=== PATIENT | male | born 1980 | race Caucasian/White ===

== ENCOUNTER 2021-06-26 05:45 | Emergency (ER) | payer OTHER ==
[2021-06-26 06:00] VITALS: BP 145/92; PULSE 78; TEMP 98.1; BMI 29.7
[2021-06-26] MEDS ORDERED: ASPIRIN 81 MG CHEWABLE TABLETS PO ONE (07:24)
[2021-06-26 08:42] LABS: BASO % 0.6 % (0-2.0); EOS % 1.5 % (0-4.5); HEMOGLOBIN 16.2 GM/dL (11.7-16.9); LYMPH % 27.2 % (8-40); MCH 29.7 pg (25.7-33.7); MCHC 34.4 g/dl (32.0-35.9); MEAN CELL VOLUME 86.3 fl (80-96); MEAN PLT VOLUME 7.4 fl (7.5-11.1); MONO % 5.8 % (3.8-10.2); NEUT % 64.9 % (42.8-82.8); PLATELET COUNT 251 10^3/uL (134-434); RBC 5.44 M/mm3 (4.00-5.60); RDW 13.4 % (11.9-15.9); WHITE BLOOD COUNT 6.3 K/mm3 (4.0-10.0)
[2021-06-26 08:50] LABS: INR 1.01 (0.83-1.09); PROTHROMBIN TIME (PATIENT) 11.3 SEC (9.7-13.0)
[2021-06-26] MEDS ORDERED: ASPIRIN 81 MG CHEWABLE TABLETS ONE (08:51)
[2021-06-26 08:53] LABS: ACTIVATED PTT 34.5 SECONDS (25.2-36.5)
[2021-06-26 09:11] LABS: CHLORIDE 104 mmol/L (98-107); SODIUM 140 mmol/L (136-145)
[2021-06-26 09:13] LABS: CALCIUM 8.9 mg/dL (8.5-10.1)
[2021-06-26 09:14] LABS: ALBUMIN 4.2 g/dl (3.4-5.0); ANION GAP 6 MMOL/L (8-16); BLOOD UREA NITROGEN 10.8 mg/dL (7-18); CO2 30 mmol/L (21-32); GLUCOSE,RANDOM 108 mg/dL (74-106); MAGNESIUM 2.6 mg/dL (1.8-2.4)
[2021-06-26 09:17] LABS: CREATININE 0.8 mg/dL (0.55-1.3); SGOT/AST 26 U/L (15-37); SGPT/ALT 47 U/L (13-61)
[2021-06-26 09:19] LABS: BILIRUBIN,TOTAL 0.8 mg/dL (0.2-1); TOT PROT 7.8 g/dl (6.4-8.2)
[2021-06-26 09:20] LABS: ALK PHOS 132 U/L (45-117)
== END 2021-06-26 11:24 | disposition home or self-care (01) ==
LOC: JER 05:45
DX: R07.9 Chest pain, unspecified (principal)
CPT/HCPCS: 36415; 71046-TC-FY; 80053; 83735; 84484; 85025; 85610; 85730; 93005; 93010; 99285-25

== ENCOUNTER 2022-11-27 04:23 | Day surgery (SDC) | payer OTHER ==
[2022-11-25 15:36] VITALS: BMI 36.5
[2022-11-27 13:25] VITALS: TEMP 98
[2022-11-27 14:21] VITALS: BP 113/60; PULSE 74; RESP 13
== END 2022-11-27 14:35 | disposition home or self-care (01) ==
LOC: JASU-ENDO 04:23
PROVIDERS: ATTEND Internal Medicine Gastroenterology
PROC: 0DB68ZX Excision of Stomach, Via Natural or Artificial Opening Endoscopic, Diagnostic (ICD-10-PCS; 2022-11-27)
PROC: 0DJD8ZZ Inspection of Lower Intestinal Tract, Via Natural or Artificial Opening Endoscopic (ICD-10-PCS; principal; 2022-11-27 12:30)
DX: K31.A22 Gastric intestinal metaplasia with high grade dysplasia (principal); K57.30 Diverticulosis of large intestine without perforation or abscess without bleeding; R19.09 Other intra-abdominal and pelvic swelling, mass and lump
CPT/HCPCS: 88305-TC; 88342-TC

== ENCOUNTER 2022-12-02 11:36 | Day surgery (SDC) | payer OTHER ==
[~2022-12-02 11:36] MED LIST: IRON SUCROSE INJECTION 300 MG in SODIUM CHLORIDE 250 ML IVPB ONE
[2022-12-02 17:21] VITALS: BP 122/80; PULSE 74; RESP 18; TEMP 98
== END 2022-12-02 14:10 | disposition home or self-care (01) ==
LOC: JONCNONCHE 11:36
PROVIDERS: ATTEND Internal Medicine Hematology & Oncology
PROC: 3E033GC Introduction of Other Therapeutic Substance into Peripheral Vein, Percutaneous Approach (ICD-10-PCS; principal; 2022-12-02)
DX: D50.9 Iron deficiency anemia, unspecified (principal)
CPT/HCPCS: 96365; J1756

== ENCOUNTER 2022-12-04 04:30 | Day surgery (SDC) | payer OTHER ==
[2022-12-03 11:08] VITALS: BMI 36.5
[2022-12-04 14:20] VITALS: BP 120/71; PULSE 70; RESP 19
[2022-12-04 14:23] VITALS: TEMP 98
== END 2022-12-04 14:35 | disposition home or self-care (01) ==
LOC: JASU-ENDO 04:30
PROVIDERS: ATTEND Internal Medicine Gastroenterology
PROC: 0DB68ZX Excision of Stomach, Via Natural or Artificial Opening Endoscopic, Diagnostic (ICD-10-PCS; principal; 2022-12-04 12:00)
DX: C16.9 Malignant neoplasm of stomach, unspecified (principal); B96.81 Helicobacter pylori [H. pylori] as the cause of diseases classified elsewhere
CPT/HCPCS: 88305-TC; 88342-TC

== ENCOUNTER 2022-12-09 17:17 | Day surgery (SDC) | payer OTHER ==
[2022-12-09 18:13] VITALS: TEMP 98.3
[2022-12-09 18:55] VITALS: BP 130/77; PULSE 77; RESP 18
== END 2022-12-09 18:55 | disposition home or self-care (01) ==
LOC: JONCNONCHE 17:17 → J7W 17:17 → JONCNONCHE 18:55
PROVIDERS: ATTEND Internal Medicine Hematology & Oncology
PROC: 3E033GC Introduction of Other Therapeutic Substance into Peripheral Vein, Percutaneous Approach (ICD-10-PCS; principal; 2022-12-09)
DX: D50.9 Iron deficiency anemia, unspecified (principal)
CPT/HCPCS: 96365; J1756

== ENCOUNTER 2022-12-16 16:00 | Day surgery (SDC) | payer OTHER ==
[2022-12-16 18:18] VITALS: TEMP 98.2
[2022-12-16 18:35] VITALS: BP 121/84; PULSE 77; RESP 20
== END 2022-12-16 18:35 | disposition home or self-care (01) ==
LOC: JONCNONCHE 16:00
PROVIDERS: ATTEND Internal Medicine Hematology & Oncology
PROC: 3E033GC Introduction of Other Therapeutic Substance into Peripheral Vein, Percutaneous Approach (ICD-10-PCS; principal; 2022-12-16)
DX: D50.9 Iron deficiency anemia, unspecified (principal)
CPT/HCPCS: 96365; J1756

== ENCOUNTER 2022-12-23 11:22 | Day surgery (SDC) | payer OTHER ==
[2022-12-23 18:13] VITALS: BP 119/71; PULSE 70; RESP 20; TEMP 98.9
== END 2022-12-23 13:35 | disposition home or self-care (01) ==
LOC: JONCNONCHE 11:22 → J7W 11:23 → JONCNONCHE 13:35
PROVIDERS: ATTEND Internal Medicine Hematology & Oncology
PROC: 3E033GC Introduction of Other Therapeutic Substance into Peripheral Vein, Percutaneous Approach (ICD-10-PCS; principal; 2022-12-23)
DX: D50.9 Iron deficiency anemia, unspecified (principal)
CPT/HCPCS: 96365; J1756

== ENCOUNTER 2023-01-02 16:45 | Day surgery (SDC) | payer OTHER ==
[~2023-01-02 16:45] MED LIST changes: +HYDROCORTISONE SOD SUCCINATE 100 MG/2 ML VIAL IVPUSH PRN; +IRON SUCROSE INJECTION 300 MG in SODIUM CHLORIDE 235 ML IVPB ONE; -IRON SUCROSE INJECTION 300 MG in SODIUM CHLORIDE 250 ML IVPB ONE; +diphenhydrAMINE HCL 25 MG CAPSULE (FP) PO PRN
[2023-01-02 18:28] VITALS: RESP 18; TEMP 98.4
[2023-01-02 18:34] VITALS: BP 116/78; PULSE 73
== END 2023-01-02 18:34 | disposition home or self-care (01) ==
LOC: JONCNONCHE 16:45
PROVIDERS: ATTEND Internal Medicine Hematology & Oncology
PROC: 3E033GC Introduction of Other Therapeutic Substance into Peripheral Vein, Percutaneous Approach (ICD-10-PCS; principal; 2023-01-02)
DX: D50.9 Iron deficiency anemia, unspecified (principal)
CPT/HCPCS: 96365; J1756

== ENCOUNTER 2023-01-16 04:27 | Day surgery (SDC) | payer OTHER ==
[2023-01-15 17:46] VITALS: BMI 32.8
[2023-01-16] MEDS ORDERED: SODIUM CHLORIDE 500 ML IV ONE (10:35)
[2023-01-16] MEDS ORDERED: FENTANYL CITRATE/PF 50 MCG/ML VIAL ONE (10:40)
[2023-01-16] MEDS ORDERED: MIDAZOLAM HCL 2 MG/2 ML SINGLE DOSE VIAL ONE (10:40)
[2023-01-16] MEDS ORDERED: FENTANYL CITRATE/PF 50 MCG/ML VIAL IVPUSH ONE ×2 (11:08→11:18)
[2023-01-16] MEDS ORDERED: MIDAZOLAM HCL 2 MG/2 ML SINGLE DOSE VIAL IVPUSH ONE ×2 (11:08→11:18)
[2023-01-16 13:19] VITALS: RESP 20
[2023-01-16 14:29] VITALS: BP 131/76; PULSE 81; TEMP 98.7
== END 2023-01-16 14:10 | disposition home or self-care (01) ==
LOC: JRADIR 04:27
PROVIDERS: ATTEND Internal Medicine Hematology & Oncology
PROC: 0JH60WZ Insertion of Totally Implantable Vascular Access Device into Chest Subcutaneous Tissue and Fascia, Open Approach (ICD-10-PCS; principal; 2023-01-16)
DX: C16.9 Malignant neoplasm of stomach, unspecified (principal)
CPT/HCPCS: 36561; C1788; 77001-TC-FY

== ENCOUNTER 2023-01-19 08:28 | Day surgery (SDC) | payer OTHER ==
[2023-01-19] MEDS ORDERED: SODIUM CHLORIDE 250 ML IV ONE (09:30)
[2023-01-19] MEDS ORDERED: DEXAMETHASONE SODIUM PHOSPHATE 10 MG in SODIUM CHLORIDE 50 ML IVPB ONE (10:00)
[2023-01-19] MEDS ORDERED: PALONOSETRON HCL 0.25 MG/5 ML VIAL IVPUSH ONE (10:00)
[2023-01-19] MEDS ORDERED: FOSAPREPITANT DIMEGLUMINE 150 MG in SODIUM CHLORIDE 145 ML IVPB ONE (10:00)
[2023-01-19 10:08] LABS: POTASSIUM 3.6 mmol/L (3.5-5.1)
[2023-01-19 10:10] LABS: CALCIUM 8.8 mg/dL (8.5-10.1)
[2023-01-19 10:11] LABS: ALBUMIN 3.5 g/dl (3.4-5.0); BLOOD UREA NITROGEN 16.5 mg/dL (7-18); MAGNESIUM 2.3 mg/dL (1.8-2.4)
[2023-01-19 10:15] LABS: BILIRUBIN,TOTAL 0.3 mg/dL (0.2-1); CREATININE 0.7 mg/dL (0.55-1.3)
[2023-01-19 10:16] LABS: TOT PROT 6.4 g/dl (6.4-8.2)
[2023-01-19] MEDS ORDERED: SODIUM CHLORIDE IV ONE (10:30)
[2023-01-19] MEDS ORDERED: DOCETAXEL IV ONE (10:30)
[2023-01-19] MEDS ORDERED: INSULIN (NOVOLOG) ASPART 100 UNITS/ML 10ML VIAL SQ ONE (10:32)
[2023-01-19] MEDS ORDERED: INSULIN (NOVOLOG) ASPART 100 UNITS/ML 10ML VIAL ONE (10:39)
[2023-01-19] MEDS ORDERED: WATER IVPB ONE (11:30)
[2023-01-19] MEDS ORDERED: LEUCOVORIN CALCIUM IVPB ONE (11:30)
[2023-01-19] MEDS ORDERED: DEXTROSE 5% IVPB ONE (11:30)
[2023-01-19] MEDS ORDERED: FLUOROURACIL CP ONE (13:30)
[2023-01-19] MEDS ORDERED: SODIUM CHLORIDE CP ONE (13:30)
[2023-01-19 15:35] VITALS: BP 129/73; PULSE 88; RESP 18; TEMP 98.6
== END 2023-01-19 16:05 | disposition home or self-care (01) ==
LOC: JONCCHEMO 08:28 → J7W 08:30 → JONCCHEMO 16:05
PROVIDERS: ATTEND Internal Medicine Hematology & Oncology
DX: Z51.11 Encounter for antineoplastic chemotherapy (principal); C16.9 Malignant neoplasm of stomach, unspecified
CPT/HCPCS: 36415; 80053; 83735; 96366; 96367; 96375; 96413; 96415; 96417; G0498; J1453; J2469; J9263

== ENCOUNTER 2023-01-21 13:54 | Day surgery (SDC) | payer OTHER ==
[~2023-01-21 13:54] MED LIST changes: +D5-NS + 20 MEQ KCL - 10 MEQ/500 ML INFUS.BAG IV ONE; -HYDROCORTISONE SOD SUCCINATE 100 MG/2 ML VIAL IVPUSH PRN; +INSULIN (NOVOLOG) ASPART 100 UNITS/ML 10ML VIAL SQ ONE; +IRON SUCROSE COMPLEX 200 MG in SODIUM CHLORIDE 100 ML IVPB ONE; -IRON SUCROSE INJECTION 300 MG in SODIUM CHLORIDE 235 ML IVPB ONE; +MAGNESIUM 1GM/D5W - 1 GM/100 ML IVPB IVPB ONE; +PANTOPRAZOLE SODIUM 40 MG VIAL IVPB ONE; +PANTOPRAZOLE SODIUM 40 MG in SODIUM CHLORIDE 100 ML IVPB ONE; -diphenhydrAMINE HCL 25 MG CAPSULE (FP) PO PRN
[2023-01-21 18:11] VITALS: BP 145/91; PULSE 80; RESP 18; TEMP 98.4
[2023-01-21] MEDS ORDERED: PORTA CATH FLUSH 10 ML IVPUSH PRN (18:11)
== END 2023-01-21 16:30 | disposition home or self-care (01) ==
LOC: JONCCHEMO 13:54 → J7W 13:55 → JONCCHEMO 16:30
PROVIDERS: ATTEND Internal Medicine Hematology & Oncology
PROC: 3E043GC Introduction of Other Therapeutic Substance into Central Vein, Percutaneous Approach (ICD-10-PCS; principal; 2023-01-21)
DX: C16.9 Malignant neoplasm of stomach, unspecified (principal); Z76.89 Persons encountering health services in other specified circumstances
CPT/HCPCS: 82962; 96365; 96367

== ENCOUNTER 2023-02-02 09:32 | Day surgery (SDC) | payer OTHER ==
[~2023-02-02 09:32] MED LIST changes: -D5-NS + 20 MEQ KCL - 10 MEQ/500 ML INFUS.BAG IV ONE; -INSULIN (NOVOLOG) ASPART 100 UNITS/ML 10ML VIAL SQ ONE; -IRON SUCROSE COMPLEX 200 MG in SODIUM CHLORIDE 100 ML IVPB ONE; +LIDOCAINE 2.5%/PRILOCAINE 2.5% 30 GRAM TUBE TP ONE; -MAGNESIUM 1GM/D5W - 1 GM/100 ML IVPB IVPB ONE; -PANTOPRAZOLE SODIUM 40 MG VIAL IVPB ONE; -PANTOPRAZOLE SODIUM 40 MG in SODIUM CHLORIDE 100 ML IVPB ONE
[2023-02-02] MEDS ORDERED: PALONOSETRON HCL 0.25 MG/5 ML VIAL IVPUSH ONE (10:00)
[2023-02-02] MEDS ORDERED: SODIUM CHLORIDE 250 ML IV ONE (10:00)
[2023-02-02] MEDS ORDERED: DEXAMETHASONE SODIUM PHOSPHATE 10 MG in SODIUM CHLORIDE 50 ML IVPB ONE (10:00)
[2023-02-02] MEDS ORDERED: FOSAPREPITANT DIMEGLUMINE 150 MG in SODIUM CHLORIDE 145 ML IVPB ONE (10:00)
[2023-02-02] MEDS ORDERED: SODIUM CHLORIDE IV ONE ×2 (10:30→10:45)
[2023-02-02] MEDS ORDERED: DOCETAXEL IV ONE ×2 (10:30→10:45)
[2023-02-02 10:39] LABS: BASO % 0.1 % (0-2.0); LYMPH % 17.3 % (8-40); MCH 25.4 pg (25.7-33.7); MCHC 32.4 g/dl (32.0-35.9); MEAN CELL VOLUME 78.4 fl (80-96); MEAN PLT VOLUME 7.4 fl (7.5-11.1); MONO % 10.4 % (3.8-10.2); NEUT % 72.2 % (42.8-82.8); PLATELET COUNT 317 10^3/uL (134-434); RBC 3.95 M/mm3 (4.00-5.60); RDW 20.1 % (11.9-15.9); WHITE BLOOD COUNT 3.4 K/mm3 (4.0-10.0)
[2023-02-02 11:01] LABS: ALBUMIN 3.7 g/dl (3.4-5.0); BLOOD UREA NITROGEN 9.9 mg/dL (7-18); CALCIUM 8.6 mg/dL (8.5-10.1)
[2023-02-02 11:02] LABS: MAGNESIUM 2.2 mg/dL (1.8-2.4)
[2023-02-02 11:04] LABS: BILIRUBIN,DIRECT 0.1 mg/dL (0.0-0.2); CREATININE 0.8 mg/dL (0.55-1.3)
[2023-02-02 11:06] LABS: BILIRUBIN,TOTAL 0.3 mg/dL (0.2-1); TOT PROT 6.7 g/dl (6.4-8.2)
[2023-02-02] MEDS ORDERED: INSULIN (NOVOLOG) ASPART 100 UNITS/ML 10ML VIAL SQ ONE (11:11)
[2023-02-02] MEDS ORDERED: LEUCOVORIN CALCIUM IVPB ONE (11:30)
[2023-02-02] MEDS ORDERED: WATER IVPB ONE (11:30)
[2023-02-02] MEDS ORDERED: DEXTROSE 5% IVPB ONE (11:30)
[2023-02-02] MEDS ORDERED: FLUOROURACIL CP ONE (13:30)
[2023-02-02] MEDS ORDERED: SODIUM CHLORIDE CP ONE (13:30)
[2023-02-02 17:17] VITALS: BP 111/66; PULSE 66; RESP 18; TEMP 98.3
== END 2023-02-02 16:55 | disposition home or self-care (01) ==
LOC: JONCCHEMO 09:32 → J7W 09:37 → JONCCHEMO 16:55
PROVIDERS: ATTEND Internal Medicine Hematology & Oncology
DX: Z51.11 Encounter for antineoplastic chemotherapy (principal); C16.9 Malignant neoplasm of stomach, unspecified
CPT/HCPCS: 36415; 80048; 80076; 83735; 85025; 96368; 96375; 96413; 96415; 96417; G0498; J1453; J2469; J9263

== ENCOUNTER 2023-02-12 12:48 | Day surgery (SDC) | payer OTHER ==
[2023-02-12] MEDS ORDERED: TBO-FILGRASTIM 480 MCG/0.8 ML DISP.SYRIN SQ ONE (13:15)
[2023-02-12 16:29] VITALS: BP 135/78; PULSE 78; RESP 18; TEMP 98.4
== END 2023-02-12 13:35 | disposition home or self-care (01) ==
LOC: JONCCHEMO 12:48
PROVIDERS: ATTEND Internal Medicine Hematology & Oncology
DX: C16.9 Malignant neoplasm of stomach, unspecified (principal); Z76.89 Persons encountering health services in other specified circumstances
CPT/HCPCS: 96372; J1447

== ENCOUNTER 2023-02-13 13:46 | Day surgery (SDC) | payer OTHER ==
[~2023-02-13 13:46] MED LIST changes: -LIDOCAINE 2.5%/PRILOCAINE 2.5% 30 GRAM TUBE TP ONE; +TBO-FILGRASTIM 480 MCG/0.8 ML DISP.SYRIN SQ ONE
[2023-02-13 16:21] VITALS: BP 109/72; PULSE 81; RESP 18; TEMP 98.5
[2023-02-16] MEDS ORDERED: INSULIN (NOVOLOG) ASPART 100 UNITS/ML 10ML VIAL SQ ONE (09:26)
== END 2023-02-13 14:00 | disposition home or self-care (01) ==
LOC: J7W 13:46 → JONCCHEMO 13:46
PROVIDERS: ATTEND Internal Medicine Hematology & Oncology
PROC: 3E013GC Introduction of Other Therapeutic Substance into Subcutaneous Tissue, Percutaneous Approach (ICD-10-PCS; principal; 2023-02-13)
DX: C16.9 Malignant neoplasm of stomach, unspecified (principal); Z76.89 Persons encountering health services in other specified circumstances
CPT/HCPCS: 96372; J1447

== ENCOUNTER 2023-02-16 08:29 | Day surgery (SDC) | payer OTHER ==
[2023-02-16 08:32] LABS: HEMATOCRIT 37.6 % (35.4-49); HEMOGLOBIN 11.6 GM/dL (11.7-16.9); MCH 24.2 pg (25.7-33.7); MCHC 30.9 g/dl (32.0-35.9); MEAN CELL VOLUME 78.3 fl (80-96); MEAN PLT VOLUME 7.3 fl (7.5-11.1); PLATELET COUNT 262 10^3/uL (134-434); RDW 19.3 % (11.9-15.9); WHITE BLOOD COUNT 11.5 K/mm3 (4.0-10.0)
[2023-02-16] MEDS ORDERED: SODIUM CHLORIDE 250 ML IV ONE (09:00)
[2023-02-16 09:04] LABS: CALCIUM 9.2 mg/dL (8.5-10.1)
[2023-02-16 09:05] LABS: ALBUMIN 3.8 g/dl (3.4-5.0); BLOOD UREA NITROGEN 16.9 mg/dL (7-18)
[2023-02-16 09:06] LABS: MAGNESIUM 2.3 mg/dL (1.8-2.4)
[2023-02-16 09:08] LABS: BILIRUBIN,DIRECT 0.1 mg/dL (0.0-0.2); CREATININE 0.8 mg/dL (0.55-1.3)
[2023-02-16 09:09] LABS: BILIRUBIN,TOTAL 0.6 mg/dL (0.2-1)
[2023-02-16 09:10] LABS: TOT PROT 6.8 g/dl (6.4-8.2)
[2023-02-16 09:13] LABS: ANISOCYTOSIS 3+; MACROCYTOSIS 0
[2023-02-16] MEDS ORDERED: FOSAPREPITANT DIMEGLUMINE 150 MG in SODIUM CHLORIDE 145 ML IVPB ONE (09:30)
[2023-02-16] MEDS ORDERED: DEXAMETHASONE SODIUM PHOSPHATE 10 MG in SODIUM CHLORIDE 50 ML IVPB ONE (09:30)
[2023-02-16] MEDS ORDERED: PALONOSETRON HCL 0.25 MG/5 ML VIAL IVPUSH ONE (09:30)
[2023-02-16] MEDS ORDERED: SODIUM CHLORIDE IV ONE (10:00)
[2023-02-16] MEDS ORDERED: DOCETAXEL IV ONE (10:00)
[2023-02-16] MEDS ORDERED: SODIUM CHLORIDE CP ONE ×4 (10:00→13:00)
[2023-02-16] MEDS ORDERED: FLUOROURACIL CP ONE ×4 (10:00→13:00)
[2023-02-16] MEDS ORDERED: WATER IVPB ONE ×2 (11:00)
[2023-02-16] MEDS ORDERED: LEUCOVORIN CALCIUM IVPB ONE ×2 (11:00)
[2023-02-16] MEDS ORDERED: DEXTROSE 5% IVPB ONE ×2 (11:00)
[2023-02-16 17:17] VITALS: BP 124/77; PULSE 96; RESP 18; TEMP 98.6
[2023-02-16] MEDS ORDERED: PORTA CATH FLUSH 10 ML IVPUSH PRN (17:17)
== END 2023-02-16 16:40 | disposition home or self-care (01) ==
LOC: JONCCHEMO 08:29 → J7W 08:30 → JONCCHEMO 16:40
PROVIDERS: ATTEND Internal Medicine Hematology & Oncology
PROC: 3E04305 Introduction of Other Antineoplastic into Central Vein, Percutaneous Approach (ICD-10-PCS; principal; 2023-02-16)
PROC: 3E04305 Introduction of Other Antineoplastic into Central Vein, Percutaneous Approach (ICD-10-PCS; 2023-02-16)
PROC: 3E033GC Introduction of Other Therapeutic Substance into Peripheral Vein, Percutaneous Approach (ICD-10-PCS; 2023-02-16)
PROC: 3E0337Z Introduction of Electrolytic and Water Balance Substance into Peripheral Vein, Percutaneous Approach (ICD-10-PCS; 2023-02-16)
DX: Z51.11 Encounter for antineoplastic chemotherapy (principal); C16.9 Malignant neoplasm of stomach, unspecified
CPT/HCPCS: 36415; 80048; 80076; 83036; 83735; 85025; 96367; 96368; 96375; 96413; 96415; 96417; G0498; J1453; J2469; J9263

== ENCOUNTER 2023-02-18 14:54 | Day surgery (SDC) | payer OTHER ==
[~2023-02-18 14:54] MED LIST changes: +IRON SUCROSE INJECTION 200 MG in SODIUM CHLORIDE 100 ML IVPB ONE; +POTASSIUM CHLORIDE 20 MEQ, MAGNESIUM SULFATE 1 GM in SODIUM CHLORIDE 500 ML IV ONE; -TBO-FILGRASTIM 480 MCG/0.8 ML DISP.SYRIN SQ ONE
[2023-02-18 18:28] VITALS: BP 144/94; PULSE 76; RESP 20
[2023-02-18] MEDS ORDERED: PORTA CATH FLUSH 10 ML IVPUSH PRN (18:28)
== END 2023-02-18 16:00 | disposition home or self-care (01) ==
LOC: J7W 14:54 → JONCNONCHE 14:54
PROVIDERS: ATTEND Internal Medicine Hematology & Oncology
PROC: 3E0337Z Introduction of Electrolytic and Water Balance Substance into Peripheral Vein, Percutaneous Approach (ICD-10-PCS; principal; 2023-02-18)
DX: Z76.89 Persons encountering health services in other specified circumstances (principal); C16.9 Malignant neoplasm of stomach, unspecified
CPT/HCPCS: 96360; J1756

== ENCOUNTER 2023-03-02 08:19 | Day surgery (SDC) | payer OTHER ==
[2023-03-02 09:27] LABS: BASO % 0.2 % (0-2.0); HEMATOCRIT 38.1 % (35.4-49); LYMPH % 14.1 % (8-40); MCH 24.5 pg (25.7-33.7); MCHC 31.4 g/dl (32.0-35.9); MEAN CELL VOLUME 77.9 fl (80-96); MEAN PLT VOLUME 7.6 fl (7.5-11.1); MONO % 2.8 % (3.8-10.2); NEUT % 82.9 % (42.8-82.8); PLATELET COUNT 272 10^3/uL (134-434); RBC 4.89 M/mm3 (4.00-5.60); RDW 19.2 % (11.9-15.9); WHITE BLOOD COUNT 4.6 K/mm3 (4.0-10.0)
[2023-03-02] MEDS ORDERED: SODIUM CHLORIDE 250 ML IV ONE (09:30)
[2023-03-02 09:43] LABS: PH,URINE 6.5 (5.0-8.0); URINE APPEARANCE CLEAR; URINE BILIRUBIN NEGATIVE (NEGATIVE); URINE COLOR YELLOW; URINE GLUCOSE (UA) TRACE (NEGATIVE); URINE KETONE TRACE (NEGATIVE); URINE LEUK ESTERASE NEGATIVE (NEGATIVE); URINE NITRITE NEGATIVE (NEGATIVE); URINE PROTEIN TRACE (NEGATIVE); URINE UROBILINOGEN 0.2 mg/dL (0.2-1.0)
[2023-03-02 09:50] LABS: POTASSIUM 3.9 mmol/L (3.5-5.1)
[2023-03-02 09:52] LABS: CALCIUM 8.4 mg/dL (8.5-10.1)
[2023-03-02 09:53] LABS: ALBUMIN 3.6 g/dl (3.4-5.0); BLOOD UREA NITROGEN 11.1 mg/dL (7-18); MAGNESIUM 2.2 mg/dL (1.8-2.4)
[2023-03-02 09:56] LABS: BILIRUBIN,DIRECT 0.1 mg/dL (0.0-0.2); CREATININE 0.7 mg/dL (0.55-1.3)
[2023-03-02] MEDS ORDERED: INSULIN (NOVOLOG) ASPART 100 UNITS/ML 10ML VIAL SQ ONE (09:56)
[2023-03-02 09:57] LABS: TOT PROT 6.6 g/dl (6.4-8.2)
[2023-03-02 09:58] LABS: BILIRUBIN,TOTAL 0.3 mg/dL (0.2-1)
[2023-03-02] MEDS ORDERED: DEXAMETHASONE SODIUM PHOSPHATE 10 MG in SODIUM CHLORIDE 50 ML IVPB ONE (10:00)
[2023-03-02] MEDS ORDERED: FOSAPREPITANT DIMEGLUMINE 150 MG in SODIUM CHLORIDE 145 ML IVPB ONE (10:00)
[2023-03-02] MEDS ORDERED: SODIUM CHLORIDE IV ONE (10:30)
[2023-03-02] MEDS ORDERED: DOCETAXEL IV ONE (10:30)
[2023-03-02] MEDS ORDERED: PALONOSETRON HCL 0.25 MG/5 ML VIAL IVPUSH ONE (10:30)
[2023-03-02] MEDS ORDERED: WATER IVPB ONE (12:00)
[2023-03-02] MEDS ORDERED: DEXTROSE 5% IVPB ONE (12:00)
[2023-03-02] MEDS ORDERED: LEUCOVORIN CALCIUM IVPB ONE (12:00)
[2023-03-02] MEDS ORDERED: FLUOROURACIL CP ONE (14:00)
[2023-03-02] MEDS ORDERED: SODIUM CHLORIDE CP ONE (14:00)
[2023-03-02 16:34] VITALS: RESP 18; TEMP 98.3
[2023-03-02] MEDS ORDERED: PORTA CATH FLUSH 10 ML IVPUSH PRN (16:34)
[2023-03-02 16:38] VITALS: BP 130/80; PULSE 97
[2023-03-04] MEDS ORDERED: SODIUM CHLORIDE 250 ML IV ONE (09:00)
[2023-03-04] MEDS ORDERED: DEXAMETHASONE SODIUM PHOSPHATE 10 MG in SODIUM CHLORIDE 50 ML IVPB ONE (09:30)
[2023-03-04] MEDS ORDERED: FOSAPREPITANT DIMEGLUMINE 150 MG in SODIUM CHLORIDE 145 ML IVPB ONE (09:30)
[2023-03-04] MEDS ORDERED: DOCETAXEL IV ONE (10:00)
[2023-03-04] MEDS ORDERED: SODIUM CHLORIDE IV ONE (10:00)
== END 2023-03-02 15:50 | disposition home or self-care (01) ==
LOC: JONCCHEMO 08:19 → J7W 08:20 → JONCCHEMO 15:50
PROVIDERS: ATTEND Internal Medicine Hematology & Oncology
DX: Z51.11 Encounter for antineoplastic chemotherapy (principal); C16.9 Malignant neoplasm of stomach, unspecified
CPT/HCPCS: 36415; 80048; 80076; 81003; 83735; 85025; 87086; 96366; 96367; 96375; 96413; 96415; 96417; G0498; J1453; J2469; J9263

== ENCOUNTER 2023-03-04 13:30 | Day surgery (SDC) | payer OTHER ==
[2023-03-04 16:43] VITALS: RESP 18
[2023-03-04 16:55] VITALS: BP 133/85; PULSE 56
[2023-03-04] MEDS ORDERED: PORTA CATH FLUSH 10 ML IVPUSH PRN (16:55)
== END 2023-03-04 16:35 | disposition home or self-care (01) ==
LOC: JONCCHEMO 13:30 → J7W 13:30 → JONCCHEMO 16:35
PROVIDERS: ATTEND Internal Medicine Hematology & Oncology
PROC: 3E043GC Introduction of Other Therapeutic Substance into Central Vein, Percutaneous Approach (ICD-10-PCS; principal; 2023-03-04)
DX: C16.9 Malignant neoplasm of stomach, unspecified (principal); Z76.89 Persons encountering health services in other specified circumstances
CPT/HCPCS: 96365; 96367; J1756

== ENCOUNTER 2023-06-16 09:42 | Day surgery (SDC) | payer OTHER ==
[~2023-06-16 09:42] MED LIST changes: +DEXAMETHASONE SODIUM PHOSPHATE 10 MG in SODIUM CHLORIDE 50 ML IVPB ONE; +FOSAPREPITANT DIMEGLUMINE 150 MG in SODIUM CHLORIDE 145 ML IVPB ONE; -IRON SUCROSE INJECTION 200 MG in SODIUM CHLORIDE 100 ML IVPB ONE; +PALONOSETRON HCL 0.25 MG/5 ML VIAL IVPUSH ONE; -POTASSIUM CHLORIDE 20 MEQ, MAGNESIUM SULFATE 1 GM in SODIUM CHLORIDE 500 ML IV ONE; +SODIUM CHLORIDE 250 ML IV ONE
[2023-06-16] MEDS ORDERED: DOCETAXEL IV ONE (10:00)
[2023-06-16] MEDS ORDERED: SODIUM CHLORIDE IV ONE (10:00)
[2023-06-16 10:49] LABS: HEMATOCRIT 44.2 % (35.4-49); HEMOGLOBIN 14.9 GM/dL (11.7-16.9); LYMPH % 11.2 % (8-40); MCH 27.4 pg (25.7-33.7); MCHC 33.6 g/dl (32.0-35.9); MEAN CELL VOLUME 81.4 fl (80-96); MEAN PLT VOLUME 7.5 fl (7.5-11.1); MONO % 4.4 % (3.8-10.2); NEUT % 84.4 % (42.8-82.8); PLATELET COUNT 301 10^3/uL (134-434); RBC 5.43 M/mm3 (4.00-5.60); RDW 15.9 % (11.9-15.9); WHITE BLOOD COUNT 9.7 K/mm3 (4.0-10.0)
[2023-06-16] MEDS ORDERED: WATER IVPB ONE (11:00)
[2023-06-16] MEDS ORDERED: DEXTROSE 5% IVPB ONE (11:00)
[2023-06-16] MEDS ORDERED: LEUCOVORIN CALCIUM IVPB ONE (11:00)
[2023-06-16 11:06] LABS: POTASSIUM 3.8 mmol/L (3.5-5.1)
[2023-06-16 11:08] LABS: BLOOD UREA NITROGEN 15.3 mg/dL (7-18); CALCIUM 9.1 mg/dL (8.5-10.1)
[2023-06-16 11:09] LABS: ALBUMIN 4.1 g/dl (3.4-5.0); MAGNESIUM 2.3 mg/dL (1.8-2.4)
[2023-06-16 11:11] LABS: BILIRUBIN,DIRECT 0.1 mg/dL (0.0-0.2)
[2023-06-16 11:12] LABS: CREATININE 0.7 mg/dL (0.55-1.3)
[2023-06-16 11:13] LABS: BILIRUBIN,TOTAL 0.4 mg/dL (0.2-1)
[2023-06-16 11:15] LABS: TOT PROT 7.4 g/dl (6.4-8.2)
[2023-06-16] MEDS ORDERED: INSULIN (NOVOLOG) ASPART 100 UNITS/ML 10ML VIAL SQ ONE (11:45)
[2023-06-16] MEDS ORDERED: FLUOROURACIL CP ONE (13:00)
[2023-06-16] MEDS ORDERED: SODIUM CHLORIDE CP ONE (13:00)
[2023-06-16 17:14] VITALS: TEMP 98.3
[2023-06-16 17:21] VITALS: BP 122/84; PULSE 76; RESP 18
[2023-06-16] MEDS ORDERED: PORTA CATH FLUSH 10 ML IVPUSH PRN (17:21)
== END 2023-06-16 17:24 | disposition home or self-care (01) ==
LOC: JONCCHEMO 09:42 → J7W 09:44 → JONCCHEMO 17:24
PROVIDERS: ATTEND Internal Medicine Hematology & Oncology
DX: Z51.11 Encounter for antineoplastic chemotherapy (principal); C16.9 Malignant neoplasm of stomach, unspecified
CPT/HCPCS: 36415; 80048; 80076; 83735; 85025; 96366; 96367; 96375; 96413; 96415; 96417; G0498; J1453; J2469; J9263

== ENCOUNTER 2023-06-18 15:57 | Day surgery (SDC) | payer OTHER ==
[~2023-06-18 15:57] MED LIST changes: -DEXAMETHASONE SODIUM PHOSPHATE 10 MG in SODIUM CHLORIDE 50 ML IVPB ONE; -FOSAPREPITANT DIMEGLUMINE 150 MG in SODIUM CHLORIDE 145 ML IVPB ONE; +IRON SUCROSE INJECTION 200 MG in SODIUM CHLORIDE 100 ML IVPB ONE; -PALONOSETRON HCL 0.25 MG/5 ML VIAL IVPUSH ONE; +POTASSIUM CHLORIDE 20 MEQ, MAGNESIUM SULFATE 1 GM in SODIUM CHLORIDE 500 ML IV ONE; -SODIUM CHLORIDE 250 ML IV ONE
[2023-06-18 16:11] VITALS: BP 110/64; PULSE 85; RESP 18; TEMP 98.1
[2023-06-18] MEDS ORDERED: PORTA CATH FLUSH 10 ML IVPUSH PRN (16:11)
[2023-06-18] MEDS ORDERED: chlorproMAZINE HCL 25 MG/1 ML AMP IVPB ONE (17:00)
== END 2023-06-18 18:34 | disposition home or self-care (01) ==
LOC: JONCCHEMO 15:57 → J7W 15:58 → JONCCHEMO 18:34
PROVIDERS: ATTEND Internal Medicine Hematology & Oncology
PROC: 3E033GC Introduction of Other Therapeutic Substance into Peripheral Vein, Percutaneous Approach (ICD-10-PCS; principal; 2023-06-18)
DX: D50.9 Iron deficiency anemia, unspecified (principal); C16.9 Malignant neoplasm of stomach, unspecified
CPT/HCPCS: 96365; 96366; J1756

== ENCOUNTER 2023-07-21 08:45 | Day surgery (SDC) | payer OTHER ==
[~2023-07-21 08:45] MED LIST changes: +CHLORPROMAZINE IVPB ONE; +DEXAMETHASONE SODIUM PHOSPHATE 10 MG in SODIUM CHLORIDE 50 ML IVPB ONE; +DEXTROSE 5% IVPB ONE; +DOCETAXEL IV ONE; +FLUOROURACIL IV ONE; +FOSAPREPITANT DIMEGLUMINE 150 MG in SODIUM CHLORIDE 145 ML IVPB ONE; -IRON SUCROSE INJECTION 200 MG in SODIUM CHLORIDE 100 ML IVPB ONE; +LEUCOVORIN CALCIUM IVPB ONE; +PALONOSETRON HCL 0.25 MG/5 ML VIAL IVPUSH ONE; -POTASSIUM CHLORIDE 20 MEQ, MAGNESIUM SULFATE 1 GM in SODIUM CHLORIDE 500 ML IV ONE; +SODIUM CHLORIDE 250 ML IV ONE; +SODIUM CHLORIDE IV ONE; +SODIUM CHLORIDE IVPB ONE; +WATER IVPB ONE
[2023-07-21] MEDS ORDERED: SODIUM CHLORIDE 250 ML IV ONE (09:30)
[2023-07-21 09:31] LABS: BASO % 0.2 % (0-2.0); HEMATOCRIT 44.4 % (35.4-49); MCH 28.2 pg (25.7-33.7); MCHC 33.7 g/dl (32.0-35.9); MEAN CELL VOLUME 83.5 fl (80-96); MEAN PLT VOLUME 7.2 fl (7.5-11.1); MONO % 4.9 % (3.8-10.2); NEUT % 80.9 % (42.8-82.8); PLATELET COUNT 294 10^3/uL (134-434); RBC 5.32 M/mm3 (4.00-5.60); WHITE BLOOD COUNT 9.4 K/mm3 (4.0-10.0)
[2023-07-21 09:55] LABS: POTASSIUM 3.9 mmol/L (3.5-5.1)
[2023-07-21 09:58] LABS: ALBUMIN 4.1 g/dl (3.4-5.0); BLOOD UREA NITROGEN 14.6 mg/dL (7-18); CALCIUM 9.5 mg/dL (8.5-10.1); MAGNESIUM 2.2 mg/dL (1.8-2.4)
[2023-07-21] MEDS ORDERED: CHLORPROMAZINE IVPB ONE (10:00)
[2023-07-21] MEDS ORDERED: PALONOSETRON HCL 0.25 MG/5 ML VIAL IVPUSH ONE (10:00)
[2023-07-21] MEDS ORDERED: FOSAPREPITANT DIMEGLUMINE 150 MG in SODIUM CHLORIDE 145 ML IVPB ONE (10:00)
[2023-07-21] MEDS ORDERED: SODIUM CHLORIDE IVPB ONE (10:00)
[2023-07-21] MEDS ORDERED: DEXAMETHASONE SODIUM PHOSPHATE 10 MG in SODIUM CHLORIDE 50 ML IVPB ONE (10:00)
[2023-07-21 10:01] LABS: BILIRUBIN,DIRECT 0.2 mg/dL (0.0-0.2); CREATININE 0.8 mg/dL (0.55-1.3)
[2023-07-21 10:02] LABS: BILIRUBIN,TOTAL 0.7 mg/dL (0.2-1); TOT PROT 7.5 g/dl (6.4-8.2)
[2023-07-21] MEDS ORDERED: SODIUM CHLORIDE IV ONE (10:30)
[2023-07-21] MEDS ORDERED: DOCETAXEL IV ONE (10:30)
[2023-07-21] MEDS ORDERED: LEUCOVORIN CALCIUM IVPB ONE (11:30)
[2023-07-21] MEDS ORDERED: WATER IVPB ONE (11:30)
[2023-07-21] MEDS ORDERED: DEXTROSE 5% IVPB ONE (11:30)
[2023-07-21] MEDS ORDERED: FLUOROURACIL CP ONE (13:30)
[2023-07-21] MEDS ORDERED: SODIUM CHLORIDE CP ONE (13:30)
[2023-07-21 16:56] VITALS: BP 148/85; PULSE 90; RESP 18; TEMP 98.3
== END 2023-07-21 16:25 | disposition home or self-care (01) ==
LOC: JONCCHEMO 08:45 → J7W 08:46 → JONCCHEMO 16:25
PROVIDERS: ATTEND Internal Medicine Hematology & Oncology
DX: Z51.11 Encounter for antineoplastic chemotherapy (principal); C16.9 Malignant neoplasm of stomach, unspecified
CPT/HCPCS: 36415; 80048; 80076; 83735; 85025; 96366; 96367; 96375; 96413; 96415; 96417; G0498; J1453; J2469; J9263

== ENCOUNTER 2023-07-23 14:59 | Day surgery (SDC) | payer OTHER ==
[~2023-07-23 14:59] MED LIST changes: -CHLORPROMAZINE IVPB ONE; -DEXAMETHASONE SODIUM PHOSPHATE 10 MG in SODIUM CHLORIDE 50 ML IVPB ONE; -DEXTROSE 5% IVPB ONE; -DOCETAXEL IV ONE; -FLUOROURACIL IV ONE; -FOSAPREPITANT DIMEGLUMINE 150 MG in SODIUM CHLORIDE 145 ML IVPB ONE; +IRON SUCROSE COMPLEX 200 MG in SODIUM CHLORIDE 100 ML IVPB ONE; -LEUCOVORIN CALCIUM IVPB ONE; -PALONOSETRON HCL 0.25 MG/5 ML VIAL IVPUSH ONE; +POTASSIUM CHLORIDE 20 MEQ, MAGNESIUM SULFATE 1 GM in SODIUM CHLORIDE 500 ML IVPB ONE; -SODIUM CHLORIDE 250 ML IV ONE; -SODIUM CHLORIDE IV ONE; -SODIUM CHLORIDE IVPB ONE; -WATER IVPB ONE
[2023-07-23 16:16] VITALS: TEMP 98.7
[2023-07-23 17:26] VITALS: BP 110/78; PULSE 62; RESP 20
[2023-07-23] MEDS ORDERED: PORTA CATH FLUSH 10 ML IVPUSH PRN (17:26)
== END 2023-07-23 17:30 | disposition home or self-care (01) ==
LOC: JONCCHEMO 14:59 → J7W 15:04 → JONCCHEMO 17:30
PROVIDERS: ATTEND Internal Medicine Hematology & Oncology
PROC: 3E043GC Introduction of Other Therapeutic Substance into Central Vein, Percutaneous Approach (ICD-10-PCS; principal; 2023-07-23)
DX: C16.2 Malignant neoplasm of body of stomach (principal)
CPT/HCPCS: 96365

== ENCOUNTER 2023-08-19 08:47 | Day surgery (SDC) | payer OTHER ==
[2023-08-19] MEDS ORDERED: SODIUM CHLORIDE 250 ML IV ONE (09:15)
[2023-08-19] MEDS ORDERED: PALONOSETRON HCL 0.25 MG/5 ML VIAL IVPUSH ONE (09:15)
[2023-08-19] MEDS ORDERED: FOSAPREPITANT DIMEGLUMINE 150 MG in SODIUM CHLORIDE 145 ML IVPB ONE (09:30)
[2023-08-19] MEDS ORDERED: DEXAMETHASONE SODIUM PHOSPHATE 10 MG in SODIUM CHLORIDE 50 ML IVPB ONE (09:30)
[2023-08-19] MEDS ORDERED: DOCETAXEL IV ONE (10:00)
[2023-08-19] MEDS ORDERED: SODIUM CHLORIDE IV ONE (10:00)
[2023-08-19 10:10] LABS: BASO % 0.3 % (0-2.0); HEMATOCRIT 43.9 % (35.4-49); HEMOGLOBIN 14.6 GM/dL (11.7-16.9); LYMPH % 17.9 % (8-40); MCH 27.8 pg (25.7-33.7); MCHC 33.2 g/dl (32.0-35.9); MEAN CELL VOLUME 83.7 fl (80-96); MEAN PLT VOLUME 7.1 fl (7.5-11.1); MONO % 5.3 % (3.8-10.2); NEUT % 76.5 % (42.8-82.8); PLATELET COUNT 321 10^3/uL (134-434); RBC 5.24 M/mm3 (4.00-5.60); RDW 16.1 % (11.9-15.9); WHITE BLOOD COUNT 7.5 K/mm3 (4.0-10.0)
[2023-08-19 10:59] LABS: POTASSIUM 3.8 mmol/L (3.5-5.1)
[2023-08-19] MEDS ORDERED: WATER IVPB ONE (11:00)
[2023-08-19] MEDS ORDERED: DEXTROSE 5% IVPB ONE (11:00)
[2023-08-19] MEDS ORDERED: LEUCOVORIN CALCIUM IVPB ONE (11:00)
[2023-08-19 11:01] LABS: CALCIUM 8.9 mg/dL (8.5-10.1)
[2023-08-19 11:02] LABS: ALBUMIN 3.9 g/dl (3.4-5.0); BLOOD UREA NITROGEN 15.1 mg/dL (7-18); MAGNESIUM 2.2 mg/dL (1.8-2.4)
[2023-08-19 11:05] LABS: BILIRUBIN,DIRECT 0.1 mg/dL (0.0-0.2); CREATININE 0.6 mg/dL (0.55-1.3)
[2023-08-19 11:07] LABS: BILIRUBIN,TOTAL 0.4 mg/dL (0.2-1); TOT PROT 7.2 g/dl (6.4-8.2)
[2023-08-19] MEDS ORDERED: SODIUM CHLORIDE CP ONE (13:00)
[2023-08-19] MEDS ORDERED: FLUOROURACIL CP ONE (13:00)
[2023-08-19 15:34] VITALS: RESP 16; TEMP 98.2
[2023-08-19] MEDS ORDERED: PORTA CATH FLUSH 10 ML IVPUSH PRN (15:39)
[2023-08-19 16:14] VITALS: BP 136/84; PULSE 80
== END 2023-08-19 16:22 | disposition home or self-care (01) ==
LOC: JONCCHEMO 08:47 → J7W 08:50 → JONCCHEMO 16:22
PROVIDERS: ATTEND Internal Medicine Hematology & Oncology
DX: Z51.11 Encounter for antineoplastic chemotherapy (principal); C16.2 Malignant neoplasm of body of stomach
CPT/HCPCS: 36415; 80048; 80076; 83735; 85025; 96367; 96375; 96413; 96415; 96417; G0498; J1453; J2469; J9263

== ENCOUNTER 2023-08-21 13:00 | Day surgery (SDC) | payer OTHER ==
[2023-08-21 16:35] VITALS: RESP 16; TEMP 98.3
[2023-08-21 16:47] VITALS: BP 126/87; PULSE 77
== END 2023-08-21 14:50 | disposition home or self-care (01) ==
LOC: JONCCHEMO 13:00 → J7W 13:11 → JONCCHEMO 14:50
PROVIDERS: ATTEND Internal Medicine Hematology & Oncology
PROC: 3E043GC Introduction of Other Therapeutic Substance into Central Vein, Percutaneous Approach (ICD-10-PCS; principal; 2023-08-21)
DX: D50.9 Iron deficiency anemia, unspecified (principal)
CPT/HCPCS: 96365

== ENCOUNTER 2023-08-27 16:04 | Day surgery (SDC) | payer OTHER ==
[~2023-08-27 16:04] MED LIST changes: -IRON SUCROSE COMPLEX 200 MG in SODIUM CHLORIDE 100 ML IVPB ONE; -POTASSIUM CHLORIDE 20 MEQ, MAGNESIUM SULFATE 1 GM in SODIUM CHLORIDE 500 ML IVPB ONE; +TBO-FILGRASTIM 480 MCG/0.8 ML DISP.SYRIN SQ ONE
[2023-08-28 01:54] VITALS: BP 134/90; PULSE 90; RESP 20; TEMP 99.4
== END 2023-08-27 16:35 | disposition home or self-care (01) ==
LOC: JONCCHEMO 16:04
PROVIDERS: ATTEND Internal Medicine Hematology & Oncology
PROC: 3E013GC Introduction of Other Therapeutic Substance into Subcutaneous Tissue, Percutaneous Approach (ICD-10-PCS; principal; 2023-08-27)
DX: C16.2 Malignant neoplasm of body of stomach (principal); Z76.89 Persons encountering health services in other specified circumstances
CPT/HCPCS: 96372; J1447

== ENCOUNTER 2023-09-02 08:53 | Day surgery (SDC) | payer OTHER ==
[2023-09-02] MEDS ORDERED: SODIUM CHLORIDE 250 ML IV ONE (09:30)
[2023-09-02 09:48] LABS: HEMATOCRIT 41.3 % (35.4-49); HEMOGLOBIN 14.4 GM/dL (11.7-16.9); MCHC 34.8 g/dl (32.0-35.9); MEAN CELL VOLUME 83.3 fl (80-96); PLATELET COUNT 235 10^3/uL (134-434); RBC 4.96 M/mm3 (4.00-5.60); RDW 15.9 % (11.9-15.9)
[2023-09-02] MEDS ORDERED: DEXAMETHASONE SODIUM PHOSPHATE 10 MG in SODIUM CHLORIDE 50 ML IVPB ONE (10:00)
[2023-09-02] MEDS ORDERED: FOSAPREPITANT DIMEGLUMINE 150 MG in SODIUM CHLORIDE 145 ML IVPB ONE (10:00)
[2023-09-02] MEDS ORDERED: PALONOSETRON HCL 0.25 MG/5 ML VIAL IVPUSH ONE (10:00)
[2023-09-02 10:06] LABS: POTASSIUM 3.5 mmol/L (3.5-5.1)
[2023-09-02 10:08] LABS: CALCIUM 8.8 mg/dL (8.5-10.1)
[2023-09-02 10:09] LABS: ALBUMIN 3.6 g/dl (3.4-5.0); BLOOD UREA NITROGEN 13.4 mg/dL (7-18); MAGNESIUM 2.6 mg/dL (1.8-2.4)
[2023-09-02 10:12] LABS: CREATININE 0.6 mg/dL (0.55-1.3)
[2023-09-02 10:13] LABS: BILIRUBIN,DIRECT 0.1 mg/dL (0.0-0.2); BILIRUBIN,TOTAL 0.3 mg/dL (0.2-1); TOT PROT 6.6 g/dl (6.4-8.2)
[2023-09-02] MEDS ORDERED: SODIUM CHLORIDE IV ONE (10:30)
[2023-09-02] MEDS ORDERED: DOCETAXEL IV ONE (10:30)
[2023-09-02 11:21] LABS: ANISOCYTOSIS 0; MACROCYTOSIS 0
[2023-09-02] MEDS ORDERED: DEXTROSE 5% IVPB ONE (11:30)
[2023-09-02] MEDS ORDERED: WATER IVPB ONE (11:30)
[2023-09-02] MEDS ORDERED: LEUCOVORIN CALCIUM IVPB ONE (11:30)
[2023-09-02] MEDS ORDERED: FLUOROURACIL CP ONE (13:30)
[2023-09-02] MEDS ORDERED: SODIUM CHLORIDE CP ONE (13:30)
[2023-09-02] MEDS ORDERED: DEXAMETHASONE SOD PHOSPHATE 10 MG/1 ML VIAL IVPUSH ONE (14:39)
[2023-09-02] MEDS ORDERED: FAMOTIDINE 20 MG/50 ML IVPB 20 MG/50 ML MG IVPB ONE (14:39)
[2023-09-02] MEDS ORDERED: EPINEPHrine 1:1,000 1,000 MCG/ML ML SQ ONE (14:42)
[2023-09-02] MEDS ORDERED: methylPREDNISolone NA SUCC 40 MG/1 ML VIAL IVPUSH ONE ×2 (14:44→15:01)
[2023-09-02] MEDS ORDERED: SODIUM CHLORIDE 500 ML IV ONE (15:45)
[2023-09-02 15:56] VITALS: RESP 18; TEMP 98.5
[2023-09-02] MEDS ORDERED: PORTA CATH FLUSH 10 ML IVPUSH PRN (15:59)
[2023-09-02 18:18] VITALS: BP 117/87; PULSE 101
== END 2023-09-02 19:07 | disposition home or self-care (01) ==
LOC: JONCCHEMO 08:53 → J7W 08:53 → JONCCHEMO 18:32 → J7W 18:32 → JONCCHEMO 19:07
PROVIDERS: ATTEND Internal Medicine Hematology & Oncology
DX: Z51.11 Encounter for antineoplastic chemotherapy (principal); C16.2 Malignant neoplasm of body of stomach
CPT/HCPCS: 36415; 80048; 80076; 82728; 83540; 83550; 83735; 85025; 96367; 96368; 96375; 96413; 96417; G0498; J1100; J1453; J2469; J9263

== ENCOUNTER 2023-09-04 13:50 | Day surgery (SDC) | payer OTHER ==
[~2023-09-04 13:50] MED LIST changes: +IRON SUCROSE COMPLEX 200 MG in SODIUM CHLORIDE 100 ML IVPB ONE; +POTASSIUM CHLORIDE 20 MEQ, MAGNESIUM SULFATE 1 GM in SODIUM CHLORIDE 500 ML IVPB ONE; -TBO-FILGRASTIM 480 MCG/0.8 ML DISP.SYRIN SQ ONE
[2023-09-04 18:28] VITALS: BP 124/77; PULSE 62; RESP 18; TEMP 98.5
[2023-09-04] MEDS ORDERED: PORTA CATH FLUSH 10 ML IVPUSH PRN (18:34)
== END 2023-09-04 18:36 | disposition home or self-care (01) ==
LOC: J7W 13:50 → JONCCHEMO 13:50
PROVIDERS: ATTEND Internal Medicine Hematology & Oncology
PROC: 3E043GC Introduction of Other Therapeutic Substance into Central Vein, Percutaneous Approach (ICD-10-PCS; principal; 2023-09-04)
DX: C16.2 Malignant neoplasm of body of stomach (principal); Z79.84 Long term (current) use of oral hypoglycemic drugs
CPT/HCPCS: 96365

== ENCOUNTER 2023-09-10 12:41 | Day surgery (SDC) | payer OTHER ==
[2023-09-10] MEDS ORDERED: TBO-FILGRASTIM 480 MCG/0.8 ML DISP.SYRIN SQ ONE (13:00)
[2023-09-10 17:37] VITALS: BP 124/83; PULSE 90; RESP 20; TEMP 98.6
== END 2023-09-10 13:20 | disposition home or self-care (01) ==
LOC: JONCCHEMO 12:41 → J7W 12:43 → JONCCHEMO 13:20
PROVIDERS: ATTEND Internal Medicine Hematology & Oncology
PROC: 3E013GC Introduction of Other Therapeutic Substance into Subcutaneous Tissue, Percutaneous Approach (ICD-10-PCS; principal; 2023-09-10)
DX: C16.2 Malignant neoplasm of body of stomach (principal); Z79.84 Long term (current) use of oral hypoglycemic drugs
CPT/HCPCS: 96372; J1447

== ENCOUNTER 2023-09-11 08:29 | Day surgery (SDC) | payer OTHER ==
[2023-09-11] MEDS ORDERED: TBO-FILGRASTIM 480 MCG/0.8 ML DISP.SYRIN SQ ONE (10:00)
[2023-09-11 10:33] VITALS: BP 121/72; PULSE 103; RESP 20; TEMP 98.6
== END 2023-09-11 09:20 | disposition home or self-care (01) ==
LOC: JONCCHEMO 08:29 → J7W 08:31 → JONCCHEMO 09:10
PROVIDERS: ATTEND Internal Medicine Hematology & Oncology
PROC: 3E013GC Introduction of Other Therapeutic Substance into Subcutaneous Tissue, Percutaneous Approach (ICD-10-PCS; principal; 2023-09-11)
DX: C16.2 Malignant neoplasm of body of stomach (principal); Z76.89 Persons encountering health services in other specified circumstances
CPT/HCPCS: 96372; J1447

== ENCOUNTER 2025-05-01 06:52 | Day surgery (SDC) | payer OTHER ==
[2025-04-28 10:53] VITALS: BMI 36.0
[2025-05-01 10:25] VITALS: RESP 18; TEMP 97.6
[2025-05-01 10:51] VITALS: BP 133/81; PULSE 69
== END 2025-05-01 10:35 | disposition home or self-care (01) ==
LOC: JRADIR 06:52
PROVIDERS: ATTEND Internal Medicine Hematology & Oncology
PROC: B517YZA Fluoroscopy of Left Subclavian Vein using Other Contrast, Guidance (ICD-10-PCS; principal; 2025-05-01)
DX: Z43.8 Encounter for attention to other artificial openings (principal)
CPT/HCPCS: 36598